=== PATIENT | female | born 1985 | race Caucasian/White ===

== ENCOUNTER 2017-07-29 15:29 | Emergency (ER) | payer MEDICAID ==
[~2017-07-29] VITALS: Ht 157.5 cm; Wt 68.0 kg
[~2017-07-29 15:29] MED LIST: BECL8.7A6 IH
[2017-07-29] MEDS ORDERED: PREDNISONE 20MG TABLET PO ONE (16:30)
[2017-07-29 17:04] VITALS: BP 141/73
== END 2017-07-29 17:07 | disposition home or self-care (01) ==
LOC: ER 15:29
DX: J45.901 Unspecified asthma with (acute) exacerbation (principal)
CPT/HCPCS: 99283; J7512; Z7610